=== PATIENT | female | born 1955 | race American Indian/Alaskan Native ===

== ENCOUNTER 2021-02-21 12:30 | Emergency (ER) | payer MEDICARE, OTHER ==
[2021-02-21 12:44] VITALS: BP 173/79
[2021-02-21] MEDS ORDERED: fentaNYL 100 MCG/2 ML INJ IM ONE (14:20)
[2021-02-21] MEDS ORDERED: ONDANSETRON 4 MG/2 ML INJ IM ONE (14:20)
[2021-02-21] MEDS ORDERED: KETOROLAC 60 MG/2 ML INJ IM ONE (14:20)
--- NOTE | 2021-02-21 14:29 | Emergency Department Report ---
HPI - General Chief Complaint: Extremity Injury, Upper Time Seen by Provider: 02/21/21 14:12 - HPI HPI: Room 11 The patient is a 65-year-old female present with a chief complaint left shoulder pain after fall. The patient states just prior to arrival she was going downstairs when she slipped and fell to the ground landing on her left shoulder. Patient denies loss of consciousness. Patient gives her pain a score of 10/10 ED Past Medical Hx - Past Medical History Hx Hypertension: Yes Hx Diabetes: Yes Hx Asthma: Yes - Surgical History Past Surgical History?: Yes Hx Cholecystectomy: Yes Additional Surgical History: left lung abscess removal. Bilateral tubal ligation - Family History Family history: no significant - Social History Smoking Status: Never Smoker Substance Use Type: None (Denies illicit drug use) - Medications Home Medications: Home Medications Medication Instructions Recorded Confirmed Last Taken Type Albuterol Mdi (or & Nicu Only) 2 puff IH Q4H PRN 08/29/17 08/29/17 Unknown History [ProAir HFA Inhaler] Aspirin [Adult Low Dose Aspirin EC] 81 mg PO QDAY 08/29/17 08/29/17 08/28/17 History Insulin Glargine,Hum.rec.anlog 65 units SUB-Q QHS 08/29/17 08/29/17 08/28/17 History [Zee Arredondo] Insulin NPH/Regular [NovoLIN 70/30] 25 units SUB-Q BIDAC 08/29/17 08/29/17 08/28/17 History Losartan/Hydrochlorothiazide 1 each PO QDAY 08/29/17 08/29/17 08/28/17 History [Hyzaar 100-25 TAB] Metformin HCl [Glucophage] 1,000 mg PO BID 08/29/17 08/29/17 08/28/17 History Multivit/Folic Acid/Vit K1 1 each PO DAILY 08/29/17 08/29/17 08/28/17 History [One-A-Day Women's 50 Plus Tab] [place]-3S/Dha/Epa/Fish Oil [[place]-3 1 each PO DAILY 08/29/17 08/29/17 08/28/17 History Fish Oil 1,000 mg Sfgl] glipiZIDE [Glipizide] 10 mg PO BIDWM 08/29/17 08/29/17 08/28/17 History DOXYCYCLINE Hyclate [Vibramycin 100 mg PO BID #10 capsule 09/01/17 Unknown Rx CAP] Oseltamivir [Tamiflu] 75 mg PO BID #7 capsule 09/01/17 Unknown Rx Cyclobenzaprine [Flexeril] 10 mg PO TID PRN #14 tablet 02/21/21 Unknown Rx Ibuprofen [Motrin 800 MG tab] 800 mg PO Q8HR PRN #20 tablet 02/21/21 Unknown Rx oxyCODONE /ACETAMINOPHEN [Percocet 1 - 2 tab PO Q6HR PRN #20 tablet 02/21/21 Unknown Rx 5/325] ED Review of Systems ROS: Stated complaint: FELL DISLOCATED LEFT SHOULDER Other details as noted in HPI Constitutional: no symptoms reported Eyes: denies: eye pain ENT: denies: throat pain Respiratory: no symptoms reported Cardiovascular: denies: chest pain Endocrine: no symptoms reported Gastrointestinal: denies: abdominal pain Genitourinary: denies: dysuria Musculoskeletal: arthralgia Neurological: denies: headache Physical Exam - Physical Exam Vital Signs: Vital Signs 02/21/21 12:42 Temperature 97.9 F Pulse Rate 112 H Respiratory 20 Rate Blood Pressure 173/79 O2 Sat by Pulse 99 Oximetry Physical Exam: GENERAL: The patient is well-developed well-nourished female sitting in wheelchair not appearing to be in acute distress HEENT: Normocephalic. Atraumatic. Extraocular motions are intact. Patient has moist mucous membranes. NECK: Supple. Trachea midline CHEST/LUNGS: Clear to auscultation. There is no respiratory distress noted. HEART/CARDIOVASCULAR: Regular. There is no tachycardia. There is no gallop rub or murmur. 2+ left radial pulse ABDOMEN: Abdomen is soft, nontender. Patient has normal bowel sounds. There is no abdominal distention. SKIN: There is no rash. There is no edema. There is no diaphoresis. NEURO: The patient is awake, alert, and oriented. The patient is cooperative. The patient has no focal neurologic deficits of the left upper extremity. The patient has normal speech' MUSCULOSKELETAL: There is tenderness to palpation of the left elbow and left upper humerus. There is no tenderness to palpation of the left clavicle ED Course Vital Signs 02/21/21 12:42 Temperature 97.9 F Pulse Rate 112 H Respiratory 20 Rate Blood Pressure 173/79 O2 Sat by Pulse 99 Oximetry ED Medical Decision Making - Radiology Data Radiology results: report reviewed (Left shoulder x-ray, left elbow x-ray), image reviewed (Left shoulder x-ray, left elbow x-ray) interpreted by me: Left shoulder [id number] humeral head fracture. No dislocation Left elbow x-ray-no acute fracture, no dislocation [facility] [address] [place] [address] XRay Report Signed Patient: ISABELLA HASSAN MR#: [id number] 1775 : 1955 Acct:[id number] Age/Sex: 65 / F ADM Date: 02/21/21 Loc: ED Attending Dr: Ordering Physician: KYARA VALENCIA MD Date of Service: 02/21/21 Procedure(s): XR shoulder 2+V LT Accession Number(s): [id number] cc: KYARA VALENCIA MD Fluoro Time In Minutes: LEFT ELBOW, 3 VIEWS INDICATION / CLINICAL INFORMATION: Pain after fall downstairs. COMPARISON: None available. FINDINGS: Unfortunately a true lateral was not obtained, most likely due to difficulty in positioning due to shoulder fracture.. Therefore it is difficult to evaluate for potential hemarthrosis. However, given this limitation, I do not see an obvious fracture and there is certainly no dislocation of the elbow. IMPRESSION: Limited evaluation due to limited positioning. I do not see an obvious fracture or dislocation. It is impossible to determine if hemarthrosis is present based on images provided. LEFT SHOULDER, 3 VIEWS INDICATION / CLINICAL INFORMATION: Pain after fall downstairs. COMPARISON: None available. FINDINGS: There is comminuted mildly displaced fracture involving the proximal humerus, spanning the proximal diaphysis and metadiaphyseal region. Fracture consists of transverse and vertical components. There is no dislocation of the glenohumeral joint. AC joint is maintained. Visualized left ribs appear grossly intact. No obvious pneumothorax identified. IMPRESSION: Comminuted minimally displaced fracture involving the proximal humerus. Signer Name: Marianne Dietz MD Signed: 02/03 3:08 PM Workstation Name: [id number] Transcribed By: Dictated By: Marianne Dietz MD Electronically Authenticated By: Marianne Dietz MD Signed Date/Time: 02/21/21 1508 DD/ 1504 TD/TT: [facility] [address] [place] [address] XRay Report Signed Patient: ISAEBLLA HASSAN MR#: [id number] : 1955 Acct:[id number] Age/Sex: 65 / F ADM Date: 02/21/21 Loc: ED Attending Dr: Ordering Physician: KYARA VALENCIA MD Date of Service: 02/21/21 Procedure(s): XR elbow 3+V LT Accession Number(s): [id number] cc: KYARA VALENCIA MD Fluoro Time In Minutes: LEFT ELBOW, 3 VIEWS INDICATION / CLINICAL INFORMATION: Pain after fall downstairs. COMPARISON: None available. FINDINGS: Unfortunately a true lateral was not obtained, most likely due to difficulty in positioning due to shoulder fracture.. Therefore it is difficult to evaluate for potential hemarthrosis. However, given this limitation, I do not see an obvious fracture and there is certainly no dislocation of the elbow. IMPRESSION: Limited evaluation due to limited positioning. I do not see an obvious fracture or dislocation. It is impossible to determine if hemarthrosis is present based on images provided. LEFT SHOULDER, 3 VIEWS INDICATION / CLINICAL INFORMATION: Pain after fall downstairs. COMPARISON: None available. FINDINGS: There is comminuted mildly displaced fracture involving the proximal humerus, spanning the proximal diaphysis and metadiaphyseal region. Fracture consists of transverse and vertical components. There is no dislocation of the glenohumeral joint. AC joint is maintained. Visualized left ribs appear grossly intact. No obvious pneumothorax identified. IMPRESSION: Comminuted minimally displaced fracture involving the proximal humerus. Signer Name: Marianne Dietz MD Signed: 02/21/2021 3:08 PM Workstation Name: [id number] Transcribed By: JR Dictated By: Marianne Dietz MD Electronically Authenticated By: Marianne Dietz MD Signed Date/Time: 02/21/211507 DD/ 1504 TD/TT: - Differential Diagnosis Left shoulder contusion, humerus fracture, AC separation, Critical care attestation.: If time is entered above; I have spent that time in minutes in the direct care of this critically ill patient, excluding procedure time. ED Disposition Clinical Impression: Fracture of humeral head, left, closed, Acute pain of left shoulder Disposition: TO HOME OR SELFCARE Is pt being admited?: No Does the pt Need Aspirin: No Condition: Stable Instructions: Humerus Fracture Treated With Immobilization, [id number] Additional Instructions: Return to the emergency department should you develop worsening symptoms, inability to tolerate food or liquids, high fever or any other concerns Prescriptions: Cyclobenzaprine [Flexeril] 10 mg PO TID PRN #14 tablet PRN Reason: Muscle Spasm Ibuprofen [Motrin 800 MG tab] 800 mg PO Q8HR PRN #20 tablet PRN Reason: Pain, Moderate (4-6) oxyCODONE /ACETAMINOPHEN [Percocet 5/325] 1 - 2 tab PO Q6HR PRN #20 tablet PRN Reason: Pain Referrals: BARRY GOMEZ MD [Staff Physician] - [facility] (Dr. Gomez is an orthopedic surgeon. Please follow-up with him for further evaluation) Time of Disposition: 15:30
--- NOTE | 2021-02-21 15:13 | XRay Report ---
LEFT ELBOW, 3 VIEWS INDICATION / CLINICAL INFORMATION: Pain after fall downstairs. COMPARISON: None available. FINDINGS: Unfortunately a true lateral was not obtained, most likely due to difficulty in positioning due to sh oulder fracture.. Therefore it is difficult to evaluate for potential hemarthrosis. However, given th is limitation, I do not see an obvious fracture and there is certainly no dislocation of the elbow. IMPRESSION: Limited evaluation due to limited positioning. I do not see an obvious fracture or disloc ation. It is impossible to determine if hemarthrosis is present based on images provided. LEFT SHOULDER, 3 VIEWS INDICATION / CLINICAL INFORMATION: Pain after fall downstairs. COMPARISON: None available. FINDINGS: There is comminuted mildly displaced fracture involving the proximal humerus, spanning the proximal d iaphysis and metadiaphyseal region. Fracture consists of transverse and vertical components. There is no dislocation of the glenohumeral joint. AC joint is maintained. Visualized left ribs appear grossly intact. No obvious pneumothorax identified. IMPRESSION: Comminuted minimally displaced fracture involving the proximal humerus. Signer Name: Marianne Dietz MD Signed: 02/21/2021 3:08 PM Workstation Name: [id number]
[2021-02-21] MEDS ORDERED: oxyCODONE /ACETAMINOPHEN 5-325MG TAB PO ONE (15:31)
== END 2021-02-21 16:00 | disposition home or self-care (01) ==
LOC: ED 12:30
DX: S42.292A Other displaced fracture of upper end of left humerus, initial encounter for closed fracture (principal); I10 Essential (primary) hypertension; E11.9 Type 2 diabetes mellitus without complications; J45.909 Unspecified asthma, uncomplicated; Z90.49 Acquired absence of other specified parts of digestive tract; Z98.890 Other specified postprocedural states; Z79.1 Long term (current) use of non-steroidal anti-inflammatories (NSAID); Z79.4 Long term (current) use of insulin; Z79.899 Other long term (current) drug therapy; Z88.8 Allergy status to other drugs, medicaments and biological substances; W01.0XXA Fall on same level from slipping, tripping and stumbling without subsequent striking against object, initial encounter; Y93.89 Activity, other specified; Y92.89 Other specified places as the place of occurrence of the external cause; Y99.8 Other external cause status
CPT/HCPCS: 73030; 73080; 96372; 99283; J1885; J2405; J3010